=== PATIENT | female | born 1970 | race Caucasian/White ===

== ENCOUNTER 2023-07-12 21:22 | Emergency (ER) | payer MEDICAID, SELFPAY ==
--- NOTE | ~2023-07-12 | XR_ITS ---
EXAMINATION: XR SHOULDER, RIGHT CLINICAL INFORMATION: Shoulder pain COMPARISON: None available. TECHNIQUE: Three views of the right shoulder. FINDINGS: Glenohumeral alignment is anatomic. No acute fracture is seen. The acromioclavicular joint appears intact with minimal degenerative change. Faint soft tissue calcification is suspected adjacent to the posterolateral aspect of the humeral head, suspicious for calcific rotator cuff tendinopathy. XR/XR shoulder RT min 2V IMPRESSION: No acute osseous findings identified. Findings suspicious for calcific rotator cuff tendinopathy.
[2023-07-12 22:06] VITALS: BP 123/70; PULSE 88; RESP 16; TEMP 37.2; O2SAT 98; BMI 32.1
[2023-07-13 00:51] VITALS: BP 116/65; PULSE 81; RESP 16; TEMP 37.3; O2SAT 96
[2023-07-13 02:14] VITALS: BP 112/70; PULSE 82; RESP 18; TEMP 36.8; O2SAT 100
[2023-07-13] MEDS: Lidocaine 4 % Patch ADH..PATCH 1 PATCH TRANSDERMA (02:33)
[2023-07-13] MEDS: Ibuprofen 400 MG TABLET PO (02:33)
[2023-07-13] MEDS: Acetaminophen 325 MG TABLET 975 MG PO (02:33)
[2023-07-13 02:35] VITALS: BP 112/70; PULSE 82; RESP 18; TEMP 36.8; O2SAT 100
--- NOTE | 2023-07-13 02:59 | ED.EXTPRO ---
HPI - Extremity Problem General Chief complaint: Extremity Injury, Upper Stated complaint: shoulder pain Time Seen by Provider: 07/13/23 01:58 Source: patient Mode of arrival: ambulatory History of Present Illness HPI Narrative: 53-year-old female with presentation for atraumatic right shoulder pain, she works as a [employer], denies any associated fevers or chills and states that the pain radiates down her entire right upper extremity. She denies history of diabetes or thyroid disorder. Related Data Allergies Allergy/AdvReac Type Severity Reaction Status Date / Time No Known Allergies Allergy Verified 07/12/23 22:06 [No Known Allergies*] Review of Systems Review of Systems: Pertinent positives and negatives as stated in HPI [facility] Past Medical History Source: nursing notes reviewed Social History Social History Advance Directives: No Advance Directives Information Provided: No Physical Exam Vital Signs: Vital Signs: Last Vital Signs Temp 98.3 F 07/13/23 02:35 Pulse 82 07/13/23 02:35 Resp 18 07/13/23 02:35 BP 112/70 07/13/23 02:35 Pulse Ox 100 07/13/23 02:35 O2 Del Method Room Air 07/13/23 02:35 BMI result Body Mass Index 32.1 VITAL SIGNS: Reviewed. GENERAL: Well developed, well nourished, in no acute distress. HEAD: Normocephalic/atraumatic EYES: PERRLA, EOMI LUNGS: Normal breath sounds. No adventitious sounds or accessory muscle use. SpO2<100> CARDIOVASCULAR: Regular rate and rhythm without noted murmurs, ABDOMEN: Soft, non-tender, non-distended with bowel sounds. MUSCULOSKELETAL: No tenderness, deformities, or effusions noted on gross inspection. EXTREMITIES: No cyanosis, clubbing or edema. RIGHT SHOULDER: Tenderness to palpation around entire joint, there is no overlying erythema or induration, neurovascular is intact distally SKIN: Inspection of the skin reveals no rashes NEUROLOGIC: Alert and oriented x 4. Strength and sensation to light touch were grossly intact x 4. Medications Administered Discontinued Medications Generic Name Dose Route Start Last Admin Trade Name Freq PRN Reason Stop Dose Admin Acetaminophen 975 mg 07/13/23 02:21 07/13/23 02:33 Acetaminophen 325 Mg Tablet PO 03/18/24 02:22 975 mg ONCE ONE Administration Ibuprofen 400 mg 07/13/23 02:21 07/13/23 02:33 Ibuprofen 400 Mg Tablet PO 07/13/23 02:22 400 mg ONCE ONE Administration Lidocaine 1 patch 07/13/23 02:21 07/13/23 02:33 Lidocaine 4 % Patch Adh..Patch TRANSDERMA 07/13/23 02:22 1 patch ONCE ONE Administration Protocol Medical Decision Making Medical Decision Making MDM Narrative: 53-year-old female with history and clinical presentation, acute on chronic DJD, calcific tendinitis, frozen shoulder, no clinical suspicion for fracture or dislocation. Reviewed the x-ray which demonstrates calcific tendinitis otherwise no evidence of fracture or dislocation. Patient offered analgesics and discharged home with instructions to follow-up with primary care doctor. Differential Diagnosis Differential Diagnoses: The differential diagnosis associated with the presentation includes Please see the discussion above Admission/Observation Consideration of admission/observation: Escalation of care including admission/observation considered Please see the discussion of of Radiology Impression Discussion of test interpretation with radiology: I have reviewed the radiologist's reading. Radiologist Impression: Please see the discussion above Discharge Plan Discharge Clinical Impression: Pain in right shoulder, Calcific tendinitis Patient Disposition: Home, Self-Care Instructions: Tendinitis (ED), Shoulder Pain (ED) Interventions: ED Discharge Assessment Last Done: 07/13/23 02:35 Discharge Date/Time: 07/13/23 02:39 Print Language: Wolof
== END 2023-07-13 02:39 | disposition home or self-care (01) ==
PROVIDERS: Emergency Provider Student in an Organized Health Care Education/Training Program
DX: M75.31 Calcific tendinitis of right shoulder (principal)
CPT/HCPCS: 73030; 99283